=== PATIENT | female | born 1985 | race Caucasian/White ===

== ENCOUNTER 2018-09-17 22:02 | Emergency (ER) | payer BC, MEDICAID ==
[~2018-09-17] VITALS: Ht 170.2 cm; Wt 53.3 kg
--- NOTE | 2018-09-17 22:25 | NUR ---
PT ARRIVES TO ED WITH C/O OF VAGINAL RASH AND FATIGUE. PT ALSO HAS RASH ON EXTREMTIES. PT REPROTS POSSIBLE EXPOSURE TO SYPHILLIS. POSSIBLE PRIOR HX. PT HAS RASH ON VAGINAL AREA AND GOES TO ANUS. PT RESTING IN ROOM. PT CONNECTED TO MONITOR AND PT HAS RECENT DURG USE. PA AWARE PT TACHY. AWAITING FURTHER ORDERS.
[2018-09-17] MEDS ORDERED: MORPHINE SULFATE 4 MG/ML, 1ML IVPush STA (22:56)
[2018-09-17] MEDS ORDERED: AZITHROMYCIN 500 MG TABLET PO ONE (23:00)
[2018-09-17] MEDS ORDERED: ONDANSETRON 2MG/ML, 2ML IVPush ONE (23:00)
[2018-09-17] MEDS ORDERED: CEFTRIAXONE 250 MG IM ONE (23:00)
[2018-09-17] MEDS ORDERED: BICILLIN-LA 2,400,000 UNITS/4 ML IM ONE (23:00)
[2018-09-17] MEDS ORDERED: DOXYCYCLINE 100MG TABLET PO ONE (23:00)
[2018-09-17] MEDS ORDERED: ONDANSETRON 2MG/ML, 2ML ONE (23:03)
[2018-09-17] MEDS ORDERED: CEFTRIAXONE 250 MG ONE (23:04)
[2018-09-17] MEDS ORDERED: MORPHINE SULFATE 4 MG/ML, 1ML ONE (23:04)
[2018-09-17] MEDS ORDERED: AZITHROMYCIN 250 MG TABLET ONE (23:04)
[2018-09-17] MEDS ORDERED: DOXYCYCLINE 100MG TABLET ONE (23:04)
[2018-09-17] MEDS ORDERED: LIDOCAINE-MPF 1%, 5ML ONE (23:05)
--- NOTE | 2018-09-17 23:18 | NUR ---
PT MEDICATED PER EMAR.
[2018-09-17 23:38] LABS: CLUE CELLS NONE SEEN (NONE SEEN)
[2018-09-17 23:39] LABS: WET PREP WBCS MODERATE (FEW)
--- NOTE | 2018-09-17 23:56 | NUR ---
PT RESTING IN BED. AWAITING US.
--- NOTE | 2018-09-18 00:11 | NUR ---
pt to us, bedside report to Ezekiel ruano.
--- NOTE | 2018-09-18 00:44 | NUR ---
VITALS UPDATED. POC DISCUSSED. AWAITING ULTRASOUND READ AT THIS TIME. PT AND SPOUSE DENY FURTHER NEEDS AT THIS TIME.
[2018-09-18] MEDS ORDERED: metroNIDAZOLE 500 MG TABLET ONE (01:10)
[2018-09-18 01:20] VITALS: BP 121/74
[2018-09-18] MEDS ORDERED: metroNIDAZOLE 500 MG TABLET PO ONE (01:30)
== END 2018-09-18 01:31 | disposition home or self-care (01) ==
LOC: ED 23:43
DX: K64.4 Residual hemorrhoidal skin tags (principal); A51.49 Other secondary syphilitic conditions; A51.39 Other secondary syphilis of skin; A59.01 Trichomonal vulvovaginitis; A51.0 Primary genital syphilis; B00.9 Herpesviral infection, unspecified; F15.10 Other stimulant abuse, uncomplicated; J45.909 Unspecified asthma, uncomplicated; Z72.9 Problem related to lifestyle, unspecified; F17.210 Nicotine dependence, cigarettes, uncomplicated
CPT/HCPCS: 36415; 76830; 86592; 87210; 87806; 87808; 96372; 96374; 96375; 99284; J0561; J0696; J2270; J2405; 86780; 87491; 87591; G0475